=== PATIENT | male | born 1960 | race Caucasian/White ===

== ENCOUNTER 2016-09-24 15:33 | Emergency (ER) | payer BC ==
[2016-09-24 16:59] VITALS: BP 148/94
--- NOTE | 2016-09-24 18:03 | UC ---
Lower Extremity/Ankle HPI - HPI Summary HPI Summary: 55 male presents complaining of left knee pain after falling on ice and twisting his foot and knee in the process. He states this occurred around 7am this morning. He took some ibuprofen and was able to sit while at work all day. When he left work he realized his knee was painful upon movement. Patient state he is able to bear weight and walk however it does cause him pain. Denies ankle , foot and hip pain. He did not hit his head and no LOC. He denies numbness/ tinglings. He does complain of the worst pain the back and lateral side of his knee. No other complaints at this time. - History of Current Complaint Chief Complaint: UCLowerExtremity Stated Complaint: LEFT KNEE INJURY Time Seen by Provider: 09/24/16 17:28 Hx Obtained From: Patient Onset/Duration: Sudden Onset Severity Initially: Mild Severity Currently: Moderate Pain Intensity: 8 Pain Scale Used: 0-10 Numeric Aggravating Factor(s): Standing, Ambulation Alleviating Factor(s): Rest, OTC Meds Able to Bear Weight: Yes - Allergies/Home Medications Allergies/Adverse Reactions: Allergies Allergy/AdvReac Type Severity Reaction Status Date / Time No Known Allergies Allergy Verified 09/06/15 20:39 PMH/Surg Hx/FS Hx/Imm Hx Previously Healthy: Yes Cardiovascular History Of: Reports: Hypertension - Surgical History Surgical History: Yes Surgery Procedure, Year, and Place: hernia, tonsils - Family History Known Family History: Positive: None - Social History Alcohol Use: None Substance Use Type: None Smoking Status (MU): Never Smoked Tobacco Review of Systems Constitutional: Negative Skin: Negative Eyes: Negative ENT: Negative Respiratory: Negative Cardiovascular: Negative Gastrointestinal: Negative Motor: Decreased ROM, Weakness Neurovascular: Negative Musculoskeletal: Arthralgia, Decreased ROM, Edema, Myalgia Neurological: Negative Psychological: Negative All Other Systems Reviewed And Are Negative: Yes Physical Exam Triage Information Reviewed: Yes Appearance: Well-Appearing, No Pain Distress, Well-Nourished Vital Signs: Initial Vital Signs Temp 98.4 F 09/24/16 16:54 Pulse 73 09/24/16 16:54 Resp 20 09/24/16 16:54 BP 148/94 09/24/16 16:54 blood pressure is slightly elevated Vital Signs Reviewed: Yes Eyes: Positive: Conjunctiva Clear Respiratory: Positive: Chest non-tender, Lungs clear, Normal breath sounds, No respiratory distress Cardiovascular: Positive: RRR, No Murmur, Pulses Normal - 3+ pedal pulses bilateral, Brisk Capillary Refill - < 2seconds Musculoskeletal: Positive: Strength Intact, ROM Limited @ - able to flex and extend however causes pain. strength left knee 4/5 due to pain right knee 5/5. No laxity noted on special tests however did exacerbate pain. slight edema noted. no ecchymosis, dislocation, step off or crepitus noted. no pain on distal lower extremity and no tenderness upon palpation of hip, ankle, foot. sensation and skin intact. reflexes not assessed on left knee due to injury. other reflexes normal. gait is normal with a slight limp. Neurological Exam: Normal Psychological Exam: Normal Skin Exam: Normal Diagnostics - Radiology left knee x-ray Xray Interpretation: No Acute Changes - There are no acute bony findings. The medial and lateral joint spaces are preserved. There is minor patellofemoral spurring with minor lateral subluxation of the patella. Mild patellofemoral osteoarthritis. Radiology Interpretation Completed By: Radiologist Lower Extremity Course/Dx - Course Course Of Treatment: X-ray of left knee was taken and negative. A splint was applied and patient was instructed to take Ibuprofen as needed for pain and inflammation. Ice and rest. - Differential Dx/Diagnosis Differential Diagnosis/HQI/PQRI: Contusion, Dislocation, Fracture (Closed), Sprain, Strain Provider Diagnoses: Left knee strain, sprain Discharge - Discharge Plan Condition: Stable Disposition: HOME Patient Education Materials: Knee Sprain (ED) Referrals: Tuyet Thacker PA [Primary Care Provider] - Lyndsey Alvarez MD [Medical Doctor] - Additional Instructions: Take OTC Ibuprofen every 6 hours as needed to help with pain and inflammation. Use ice and brace as needed. Rest and elevate as much as possible. If symptoms worsen or do not improve within the next 7 days please make an appointment with orthopedics for further imaging and evaluation.
--- NOTE | 2016-09-24 18:05 | RAD ---
INDICATION: Left knee pain COMPARISON: None TECHNIQUE: AP, lateral, tunnel, and sunrise were obtained. FINDINGS: There are no acute bony findings. The medial and lateral joint spaces are preserved. There is minor patellofemoral spurring with minor lateral subluxation of the patella. IMPRESSION: MILD PATELLOFEMORAL OSTEOARTHRITIS
== END 2016-09-24 18:43 | disposition home or self-care (01) ==
LOC: UCCORT 15:33
DX: S83.92XA Sprain of unspecified site of left knee, initial encounter (principal); W00.0XXA Fall on same level due to ice and snow, initial encounter; Y93.9 Activity, unspecified; Y92.9 Unspecified place or not applicable
CPT/HCPCS: 99212; G0463